=== PATIENT | male | born 1955 | race Caucasian/White ===

== ENCOUNTER 2017-09-23 07:24 | Day surgery (SDC) | payer OTHER, BC ==
[~2017-09-23] VITALS: Ht 185.4 cm; Wt 133.8 kg
[~2017-09-23 07:24] MED LIST: ACET500 PO; ASPI325 PO; Aspirin EC325 MG PO; CLOBET30L TOP; CO Q-10 100 MG1 EACH PO; CVS OMEGA-3 KR1 EACH PO; GABA300 PO; LISHYD1012 PO; METF500 PO; NORT25 PO; OXYC5 PO; Omeprazole20 M1 PO; POLY500 PO; PRAV20 PO; Prilosec Otc20 MG PO; Venlafaxine HCl75 MG PO; ZESTORETIC 20-251 EA PO
[2017-09-23] MEDS ORDERED: ASPI81CH PO (08:18)
[2017-09-23] MEDS ORDERED: Hair, Skin & N1 EACH PO (08:19)
== END 2017-09-23 22:47 | disposition home or self-care (01) ==
LOC: ORSCMMR 07:24
PROVIDERS: Surgery
PROC: 0WUF0JZ Supplement Abdominal Wall with Synthetic Substitute, Open Approach (ICD-10-PCS; principal; 2017-09-23 09:00)
DX: K42.0 Umbilical hernia with obstruction, without gangrene (principal); I10 Essential (primary) hypertension; E11.9 Type 2 diabetes mellitus without complications; G47.33 Obstructive sleep apnea (adult) (pediatric); E66.01 Morbid (severe) obesity due to excess calories; Z68.39 Body mass index [BMI] 39.0-39.9, adult; Z79.899 Other long term (current) drug therapy; Z79.84 Long term (current) use of oral hypoglycemic drugs; F17.210 Nicotine dependence, cigarettes, uncomplicated
CPT/HCPCS: 82947; C1781; J0690; J1100; J2250; J2405; J2710; J3010; J7120

== ENCOUNTER 2022-07-01 13:09 | Day surgery (SDC) | payer OTHER ==
[~2022-07-01] VITALS: Ht 182.9 cm; Wt 124.6 kg
[~2022-07-01 13:09] MED LIST changes: +ASPI81CH PO; +Celebrex200 MG PO; +Crestor40 MG PO; +Hair, Skin & N1 EACH PO; +ONDA4 PO; +VENL75ER PO
[2022-07-01] MEDS ORDERED: VITAMIN D310 MC4 (13:33)
[2022-07-01] MEDS ORDERED: GABA100 (13:33)
[2022-07-01] MEDS ORDERED: Vitamin B-12100 MCG (13:33)
[2022-07-01] MEDS ORDERED: ACET500 (13:34)
--- NOTE | 2022-07-01 16:32 | NUR ---
07/01/22 1632 Lizy Oneal S 2 SIGMOID POLYPS WERE TAKEN OFF. ONLY ONE WAS RETRIEVED. DR. QUEEN WAS NOTIFIED.
== END 2022-07-01 16:30 | disposition home or self-care (01) ==
LOC: ORSCSDS 13:09
PROVIDERS: Student in an Organized Health Care Education/Training Program
PROC: 0DBL8ZX Excision of Transverse Colon, Via Natural or Artificial Opening Endoscopic, Diagnostic (ICD-10-PCS; principal; 2022-07-01 14:30)
PROC: 0DBH8ZX Excision of Cecum, Via Natural or Artificial Opening Endoscopic, Diagnostic (ICD-10-PCS; principal; 2022-07-01 14:30)
PROC: 0DBK8ZX Excision of Ascending Colon, Via Natural or Artificial Opening Endoscopic, Diagnostic (ICD-10-PCS; principal; 2022-07-01 14:30)
PROC: 0DBN8ZX Excision of Sigmoid Colon, Via Natural or Artificial Opening Endoscopic, Diagnostic (ICD-10-PCS; principal; 2022-07-01 14:30)
PROC: 0DB48ZX Excision of Esophagogastric Junction, Via Natural or Artificial Opening Endoscopic, Diagnostic (ICD-10-PCS; principal; 2022-07-01 14:30)
DX: R19.4 Change in bowel habit (principal); Z86.010 Personal history of colon polyps; R10.9 Unspecified abdominal pain; K21.9 Gastro-esophageal reflux disease without esophagitis; D12.0 Benign neoplasm of cecum; D12.2 Benign neoplasm of ascending colon; D12.3 Benign neoplasm of transverse colon; D12.5 Benign neoplasm of sigmoid colon; K57.30 Diverticulosis of large intestine without perforation or abscess without bleeding; E11.9 Type 2 diabetes mellitus without complications; E78.5 Hyperlipidemia, unspecified; I10 Essential (primary) hypertension; G47.33 Obstructive sleep apnea (adult) (pediatric); F32.A Depression, unspecified; E66.9 Obesity, unspecified; F43.10 Post-traumatic stress disorder, unspecified; F17.210 Nicotine dependence, cigarettes, uncomplicated; Z79.899 Other long term (current) drug therapy
CPT/HCPCS: 82947; J0330; J0461; J2250; J2405; J2704; J7120; Q9968